=== PATIENT | male | born 1945 | race Native Hawaiian/Other Pacific Islander ===

== ENCOUNTER 2020-07-23 09:15 | Outpatient (CLI) | payer OTHER ==
[2020-07-23 09:28] LABS: PLATELET COUNT 310 K/uL (142-355)
[2020-07-23 09:34] LABS: POTASSIUM 4.1 mmol/L (3.6-5.2)
== END 2020-07-23 21:31 | disposition home or self-care (01) ==
LOC: LAB 09:15
PROVIDERS: ATTEND Internal Medicine
DX: Z79.899 Other long term (current) drug therapy (principal); Z79.2 Long term (current) use of antibiotics
CPT/HCPCS: 80053; 85027

== ENCOUNTER 2020-07-29 10:57 | Outpatient (CLI) | payer OTHER ==
[2020-07-29 11:15] LABS: PLATELET COUNT 345 K/uL (142-355)
[2020-07-29 11:25] LABS: POTASSIUM 4.2 mmol/L (3.6-5.2)
== END 2020-07-29 21:02 | disposition home or self-care (01) ==
LOC: LAB 10:57
PROVIDERS: ATTEND Internal Medicine
DX: A41.9 Sepsis, unspecified organism (principal)
CPT/HCPCS: 80053; 85027

== ENCOUNTER 2020-08-04 11:47 | Outpatient (CLI) | payer OTHER | END 2020-08-04 19:33 | disposition home or self-care (01) | LOC: RAD 11:47 | PROVIDERS: ATTEND Physician Assistant | DX: M54.2 Cervicalgia (principal); M54.89 Other dorsalgia ==

== ENCOUNTER 2020-08-11 11:19 | Outpatient (CLI) | payer OTHER ==
[2020-08-11 11:38] LABS: PLATELET COUNT 303 K/uL (142-355)
[2020-08-11 11:42] LABS: POTASSIUM 4.4 mmol/L (3.6-5.2)
== END 2020-08-11 19:36 | disposition home or self-care (01) ==
LOC: LAB 11:19
PROVIDERS: ATTEND Internal Medicine
DX: Z79.899 Other long term (current) drug therapy (principal); Z79.2 Long term (current) use of antibiotics
CPT/HCPCS: 80053; 85027

== ENCOUNTER 2020-11-15 09:16 | Emergency (ER) | payer OTHER ==
[~2020-11-15] VITALS: Ht 170.2 cm; Wt 79.4 kg
[2020-11-15 09:20] VITALS: BP 118/80; TEMP 98.2
== END 2020-11-15 10:16 | disposition home or self-care (01) ==
LOC: ED 09:16
DX: H60.02 Abscess of left external ear (principal); Z79.01 Long term (current) use of anticoagulants; Z98.890 Other specified postprocedural states
CPT/HCPCS: 96372; 99283; J0696

== ENCOUNTER 2020-11-15 13:06 | Emergency (ER) | payer OTHER ==
[~2020-11-15] VITALS: Ht 170.2 cm; Wt 79.4 kg
[2020-11-15 14:14] LABS: PLATELET COUNT 140 K/uL (142-355)
[2020-11-15 14:25] LABS: POTASSIUM 3.9 mmol/L (3.6-5.2)
[2020-11-15 14:32] LABS: PARTIAL THROMBOPLASTIN TIME 33.3 SECONDS (24.5-33.6)
[2020-11-15 15:28] VITALS: BP 146/77; TEMP 98.5
== END 2020-11-15 15:28 | disposition home or self-care (01) ==
LOC: ED 13:06
PROVIDERS: Emergency Medicine
DX: K11.20 Sialoadenitis, unspecified (principal); E11.65 Type 2 diabetes mellitus with hyperglycemia; Z79.4 Long term (current) use of insulin; I25.10 Atherosclerotic heart disease of native coronary artery without angina pectoris
CPT/HCPCS: 80048; 85027; 85610; 85730; 99283